=== PATIENT | female | born 1975 | race Caucasian/White ===

== ENCOUNTER 2023-10-05 04:48 | Emergency (ER) | payer MEDICARE, MEDICAID ==
[2023-10-05] MEDS ORDERED: Ketorolac Tromethamine 30 MG (1 mL) VIAL ONE (05:20)
== END 2023-10-05 06:11 | disposition home or self-care (01) ==
LOC: BURERS 04:48
DX: M54.50 Low back pain, unspecified (principal); I10 Essential (primary) hypertension
CPT/HCPCS: 72100; 96372; J1885